=== PATIENT | female | born 1975 | race Caucasian/White ===

== ENCOUNTER 2017-05-15 19:56 | Emergency (ER) | payer OTHER ==
[~2017-05-15] VITALS: Ht 152.4 cm; Wt 54.0 kg
--- NOTE | ~2017-05-15 | CT71 ---
[facility] A Service of [facility] RADIOLOGY TEXT RESULTS PATIENT: ADAMS JOHNS LOCATION: SED : [birth year] UNIT #: [id number] AGE: [address]: Saad Tavarez MD SEX: F ORDER DR: [id number] [place] [id number] E MR#: [id number] Acc #: [id number] NAME: ADAMS JOHNS : 1975 SEX: F STUDY DATE/TIME: 05/15/2017 20:27 UNIT: SED ROOM: STUDY DESCRIPTION: CT Head Wo Contrast Attending Physician: Saad Tavarez M.D. Ordering Physician: Saad Tavarez M.D. Primary Care Physician: Link Banegas M.D. MEDICAL IMAGING REPORT This report is preliminary unless electronic signature is present. EXAM CT head, 05/15/2017. HISTORY Pain. Dizzy spells for 3 weeks. Today had several beers, and while attempting to help someone adjust the Wi-Fi had a possible syncopal episode, posterior neck pain, stiffness. TECHNIQUE CT head performed skull base through vertex without intravenous contrast. This CT exam was performed with one or more of the following radiation dose reduction techniques: automatic exposure control, adjustment of mA and/or kV according to patient size, and iterative reconstruction. COMPARISON No prior CTs of head for comparison. FINDINGS Brainstem unremarkable. Cerebellum and cerebral hemispheres show normal antonio matter-white matter differentiation. No hemorrhage. No evidence of acute cortical ischemia. The midline structures are nondisplaced. The basal ganglia are intact. Ventricles, cisterns and sulci within normal limits of size and contour. No intra or extraaxial mass effect or abnormal intracranial fluid collection. The intraorbital soft tissues are unremarkable in their visualized extent. The visualized paranasal sinuses and mastoid air cells are clear. No fracture. IMPRESSION 1. Brain appears normal. If the patient has ongoing neurologic symptoms, consider follow up imaging. 2. No fracture. [facility] A Service [facility] RADIOLOGY TEXT RESULTS PATIENT: LAY,ADAMS LOCATION: SED : [birth year] UNIT #: [id number] AGE: [address]: Saad Tavarez MD SEX: F ORDER DR: Dictated by... Robson Hassan M.D. THIS IS AN ELECTRONICALLY VERIFIED REPORT Robson Hassan M.D. at 05/17/2017 2:44 PM BELLA/fredi TD: 05/16/2017 14:42 JOB #: [id number] MEDICAL IMAGING REPORT Page 1 of 1
--- NOTE | ~2017-05-15 | EKG ---
PATIENT: ADAMS JOHNS UNIT #: [id number] Ventricular Rate: 86 BPM Atrial Rate: 86 BPM P-R Interval: 128 ms QRS Duration: 82 ms Q-T Interval: 368 ms QTC Calculation(Bezet): 440 ms Calculated R [place]: -3 degrees Calculated T [place]: -19 degrees Diagnosis Line: Normal sinus rhythm with sinus arrhythmia Diagnosis Line: Low voltage QRS Diagnosis Line: Septal infarct , age undetermined Diagnosis Line: Possible Lateral infarct , age undetermined Diagnosis Line: Abnormal ECG Diagnosis Line: No previous ECGs available Diagnosis Line: Confirmed by LAKHWINDER HERNANDES MD ([id number]) on Diagnosis Line: 05/17/2017 3:24:59 PM INTERPRETING MD: GRETA PASTOR
--- NOTE | ~2017-05-15 | CT52 ---
[facility] A Service of [facility] RADIOLOGY TEXT RESULTS PATIENT: ADAMS JOHNS LOCATION: SED : [birth year] UNIT #: [id number] AGE: [address]: Saad Tavarez MD SEX: F ORDER DR: [id number] [address] [address] [id number] E MR#: [id number] Acc #: [id number] NAME: ADAMS JOHNS : 1975 SEX: F STUDY DATE/TIME: 05/15/2017 21:34 UNIT: SED ROOM: STUDY DESCRIPTION: CT Cervical Spine Wo Cont Attending Physician: Saad Tavarez M.D. Ordering Physician: Saad Tavarez M.D. Primary Care Physician: Link Banegas M.D. MEDICAL IMAGING REPORT This report is preliminary unless electronic signature is present. EXAM CT cervical spine 05/15/2017. HISTORY Pain. Dizzy spells for 3 weeks. Today had several beers and while attempting to help someone adjust the Wi-Fi, had a possible syncopal episode, posterior neck pain and stiffness. TECHNIQUE CT cervical spine performed. Bone soft tissue windows reviewed. Sagittal and coronal reconstructions performed. This CT exam was performed with one or more of the following radiation dose reduction techniques: automatic exposure control, adjustment of mA and/or kV according to patient size, and iterative reconstruction. COMPARISON Comparison to plain radiographs dated 09/10/2009. FINDINGS The visualized portions of brain are unremarkable. Visualized paranasal sinuses and mastoid air cells clear. The visualized nasopharyngeal, oropharyngeal, pharyngeal mucosal, retropharyngeal spaces, larynx, subglottic airway, superior mediastinum, and lung apices unremarkable. Thyroid, visualized submandibular, and parotid glands remarkable. There is no traumatic paraspinal soft tissue abnormality seen. There is no adenopathy. Unopacified vascular structures unremarkable. There is dextroscoliosis of the cervical spine in the frontal projection. This is new compared to 2008 and probably positional in nature. Please correlate clinically. Alignment in the lateral projection is within normal limits. The vertebral body heights, intervertebral disc space heights, and facet joint relationships appear normal. There is no evidence of traumatic fracture. No clear indication of traumatic STS. [facility] A Service of [facility] RADIOLOGY TEXT RESULTS PATIENT: ADAMS JOHNS [place] [facility] [place]: [id number] : [birth year] UNIT #: [id number] AGE: [address]: Saad Tavarez MD SEX: F ORDER DR: malalignment. There is mild baseline narrowing of the upper to mid cervical spine canal, due to somewhat short pedicles. C2-C3: Posterior central disc bulge. Anterior cord contact. No cord compression. Mild central spinal canal narrowing. Neural foramina unremarkable. C3-C4: Posterior central disc bulge. Mild central spinal canal narrowing. No cord contact. Neural foramina normal. C4-C5: Small posterior central disc bulge. No cord contact and no cord compression. Minimal central spinal canal narrowing. Neural foramina normal. C5-C6: Small posterior central disc bulge. No significant spinal canal narrowing and no cord contact. Neural foramina unremarkable. C6-C7: Minimal posterior central disc bulge. Again there is no cord contact and no significant spinal canal narrowing. The neural foramina are unremarkable. C7-T1: Normal. T1-T2, T2-T3: Normal. IMPRESSION 1. No fracture. There is no compelling evidence of traumatic malalignment. There is mild dextroscoliosis of the cervical spine which is new compared to plain radiographs from 2009 and favored to be positional in nature. Correlate with clinical exam. 2. Small posterior central disc bulges at C2-C3, C3-C4, C4-C5, C5-C6. Minimal central spinal canal narrowing C2-C3, C3-C4, C4-C5. No cord contact or compression. The neural foramina are normal throughout the visualized spine. 3. No traumatic paraspinal soft tissue abnormality is suggested. Dictated by... Robson Hassan M.D. THIS IS AN ELECTRONICALLY VERIFIED REPORT Robson Hassan M.D. at 05/17/2017 2:44 PM BELLA/michael TD: 05/16/2017 15:31 STS. [facility] A Service of [facility] RADIOLOGY TEXT RESULTS PATIENT: ADAMS JOHNS LOCATION: SED [facility] #: [id number] : [birth year] UNIT #: [id number] AGE: [address]: Saad Tavarez MD SEX: F ORDER DR: NUSRAT #: [id number] MEDICAL IMAGING REPORT Page 1 of 1
[~2017-05-15 19:56] MED LIST: ALPRAZOLAM PO; PRENATAL MULITV1 TAB PO
[2017-05-15] MEDS ORDERED: NO MEDICATIONS (20:08)
[2017-05-15 20:48] LABS: URINE SOURCE CLEAN CATCH
[2017-05-15 20:51] LABS: MICRO INDICATED? NO; URINE APPEARANCE CLEAR; URINE BILIRUBIN NEG (NEG); URINE BLOOD NEG (NEG); URINE COLOR STRAW; URINE GLUCOSE NEG (NORM); URINE KETONE NEG (NEG); URINE LEUKOCYTE ESTERASE NEG (NEG); URINE NITRATE NEG (NEG); URINE PROTEIN NEG (NEG); URINE SPECIFIC GRAVITY <=1.005 (1.003-1.035); URINE UROBILINOGEN 0.2 MG/DL (NORM)
[2017-05-15 20:54] LABS: BASOPHIL# 0.1 X10e3 (0-0.3); BASOPHIL% 0.7 % (0-2.5); EOSINOPHIL# 0.1 X10e3 (0-0.7); EOSINOPHIL% 1.7 % (0.0-7.0); HEMATOCRIT 44.4 % (35.0-45.0); HEMOGLOBIN 15.4 gm/dL (12.0-16.0); LYMPHOCYTE# 2.5 X10e3 (1.0-3.5); MEAN CELL VOLUME 91.9 FL (83-96); MEAN CORPUSCULAR HEMOGLOBIN 31.9 PG (28-34); MEAN CORPUSCULAR HGB CONC 34.7 g/dL (30-36); MEAN PLATELET VOLUME 7.2 FL (6.5-11.5); MONOCYTE# 0.5 X10e3 (0-1.0); MONOCYTE% 5.7 % (3.0-12.0); NEUTROPHIL# 5.2 X10e3 (1.5-7.1); NEUTROPHIL% 61.9 % (40-75); PLATELET COUNT 310 X10e3 (140-420); RED BLOOD COUNT 4.83 X10e (3.90-5.30); RED CELL DISTRIBUTION WIDTH 13.7 % (11.0-15.5); WHITE BLOOD COUNT 8.4 X10e3 (4.0-10.5)
[2017-05-15 20:55] LABS: DIFF IND NO
[2017-05-15 21:00] LABS: AMPHETAMINE NEG (NEG); BARBITURATES NEG (NEG); BENZODIAZEPINES NEG (NEG); COCAINE NEG (NEG); MARIJUANA NEG (NEG); OPIATES NEG (NEG); TRICYCLIC ANTIDEPRESSANTS NEG (NEG); U METHADONE NEG (NEG)
[2017-05-15 21:08] LABS: ALKALINE PHOSPHATASE 30 U/L (32-92); ALT (SGPT) 24 U/L (10-40); AST (SGOT) 22 U/L (10-42); BILIRUBIN, DIRECT <0.1 mg/dL (0.0-0.2); BILIRUBIN,INDIRECT 0.2 mg/dL (0.0-0.9); BILIRUBIN,TOTAL 0.3 mg/dL (0.2-2.0); BLOOD UREA NITROGEN 6 mg/dL (9-23); CARBON DIOXIDE 23 mmol/L (22-31); CHLORIDE 108 mmol/L (100-111); CREATININE SERUM 0.8 mg/dL (0.6-1.4); GLOM FILT RATE Estimated 91.7 mL/min (>60); GLUCOSE FASTING 87 mg/dL (70-110); POTASSIUM 3.2 mmol/L (3.5-5.1); PROTEIN TOTAL SERUM 8.1 g/dL (6.0-8.3); SODIUM 140 mmol/L (135-145)
== END 2017-05-15 22:50 | disposition home or self-care (01) ==
LOC: SED 19:56
PROVIDERS: Emergency Medicine
DX: R55 Syncope and collapse (principal); E87.6 Hypokalemia; F10.129 Alcohol abuse with intoxication, unspecified; F41.9 Anxiety disorder, unspecified; F17.200 Nicotine dependence, unspecified, uncomplicated; Z88.1 Allergy status to other antibiotic agents; Z91.040 Latex allergy status
CPT/HCPCS: 36415; 70450; 72125; 80048; 80076; 80307; 81003; 84703; 85025; 93005; 96360; 99284; G0480